=== PATIENT | female | born 1955 | race Asian ===

== ENCOUNTER 2016-11-05 00:26 | Emergency (ER) | payer OTHER ==
[2016-11-05 00:48] VITALS: BMI 20.9
[2016-11-05] MEDS ORDERED: IBUPROFEN 600 MG TABLET (FP) PO STA (01:04)
--- NOTE | 2016-11-05 01:04 | PDOC ---
History of Present Illness - General History Source: Patient Exam Limitations: No Limitations - History of Present Illness Initial Comments: 11/05/16 01:08 Patient is a 61 year old female with a significant past medical history of hyperlipidemia who presents to the ED with complaint left shoulder pain since Friday. Patient reports pain in her left arm and describes it as numbness discomfort radiating to her left hand. She states that the pain is 5/10 and she has no left arm discomfort when sitting up or laying down. She also reports occasional chest pain, but denies it now. She notes that she has been taking tylenol. Aleve and motrin with no relief. She notes that she never had this discomfort in the past, but had concerns due to her significant family history of CVAs. Patient denies any strenuous activity or trauma to the arm. She denies any headache, fever, chills, nausea, vomiting, diarrhea or constipation. She denies smoking, alcohol use or illicit drug use. She denies any recent travel. <Shivani Yepez - Last Filed: 11/05/16 03:00> - General History Source: Patient <Adam Barnes - Last Filed: 11/05/16 04:01> - General Chief Complaint: Pain Stated Complaint: PAIN,LT SHOULDER Time Seen by Provider: 11/05/16 01:01 Past History <Shivani Yepez - Last Filed: 11/05/16 03:00> - Past Medical History Anemia: No Asthma: No Cancer: No Cardiac Disorders: No CVA: No COPD: No CHF: No Dementia: No Diabetes: No GI Disorders: No Disorders: No HTN: No Hypercholesterolemia: Yes (DIET CONTROLLED) Liver Disease: No Seizures: No Thyroid Disease: No - Surgical History Abdominal Surgery: No Appendectomy: No Cardiac Surgery: No Cholecystectomy: No Lung Surgery: No Neurologic Surgery: No Orthopedic Surgery: No - Psycho/Social/Smoking Cessation Hx Suicidal Ideation: No Smoking History: Never smoked Have you smoked in the past 12 months: No Information on smoking cessation initiated: No Hx Alcohol Use: No Drug/Substance Use Hx: No Substance Use Type: None Hx Substance Use Treatment: No <Adam Barnes - Last Filed: 11/05/16 04:01> - Past Medical History Allergies/Adverse Reactions: Allergies Allergy/AdvReac Type Severity Reaction Status Date / Time No Known Drug Allergies Allergy Verified 11/05/16 00:47 Home Medications: Ambulatory Orders Ibuprofen [Motrin] 600 mg PO TID #30 tablet 11/05/16 Methocarbamol [Robaxin -] 500 mg PO TID #30 tablet 11/05/16 Review of Systems - Review of Systems Able to Perform ROS?: Yes Comments:: 11/05/16 01:09 CONSTITUTIONAL: Absent: fever, chills, diaphoresis, generalized weakness, malaise, loss of appetite HEENT: Absent: rhinorrhea, nasal congestion, throat pain, throat swelling, difficulty swallowing, mouth swelling, ear pain, eye pain, visual Changes CARDIOVASCULAR: Absent: chest pain, syncope, palpitations, irregular heart rate, lightheadedness , peripheral edema RESPIRATORY: Absent: cough, shortness of breath, dyspnea with exertion, orthopnea, wheezing, stridor, hemoptysis GASTROINTESTINAL: Absent: abdominal pain, abdominal distension, nausea, vomiting, diarrhea, constipation, melena, hematochezia GENITOURINARY: Absent: dysuria, frequency, urgency, hesitancy, hematuria, flank pain, genital pain MUSCULOSKELETAL: Present: left arm pain Absent: myalgia, arthralgia, joint swelling SKIN: Absent: rash, itching, pallor HEMATOLOGIC/IMMUNOLOGIC: Absent: easy bleeding, easy bruising, lymphadenopathy, frequent infections ENDOCRINE: Absent: unexplained weight gain, unexplained weight loss, heat intolerance, cold intolerance NEUROLOGIC: Absent: headache, focal weakness or paresthesias, dizziness, unsteady gait, seizure, mental status changes, bladder or bowel incontinence PSYCHIATRIC: Absent: anxiety, depression, suicidal or homicidal ideation, hallucinations. <Shivani Yepez - Last Filed: 11/05/16 03:00> *Physical Exam - Vital Signs Last Vital Signs Temp Pulse Resp BP Pulse Ox 98.0 F 77 20 163/74 100 11/05/16 00:47 11/05/16 00:47 11/05/16 00:47 11/05/16 00:47 11/05/16 00:47 - Physical Exam Comments: 11/05/16 01:09 GENERAL: Well developed, well nourished. Awake and alert. In no acute distress. HEENT: Normocephalic, atraumatic. PERRLA, EOMI. No conjunctival pallor. Sclerae are non -icteric. Moist mucous membranes. Oropharynx is clear. NECK: Supple. Full ROM. No JVD. Carotid pulses 2+ and symmetric, without bruits. No thyromegaly. No lymphadenopathy. CARDIOVASCULAR: Regular rate and rhythm. No murmurs, rubs, or gallops. Distal pulses are 2+ and symmetric. PULMONARY: No evidence of respiratory distress. Lungs clear to auscultation bilaterally. No wheezing, rales or rhonchi. ABDOMINAL: Soft. Non-tender. Non-distended. No rebound or guarding. No organomegaly. Normoactive bowel sounds. MUSCULOSKELETAL Normal range of motion at all joints. No bony deformities or tenderness. No CVA tenderness. EXTREMITIES: No cyanosis. No clubbing. No edema. No calf tenderness. SKIN: Warm and dry. Normal capillary refill. No rashes. No jaundice. NEUROLOGICAL: +5/5 bilateral motor strength in upper and lower extremities. Alert, awake, appropriate. Cranial nerves 2-12 intact. No deficits to light touch and temperature in face, upper extremities and lower extremities. No motor deficits in the in face, upper extremities and lower extremities. Normoreflexic in the upper and lower extremities. Normal speech. PSYCHIATRIC: Cooperative. Good eye contact. Appropriate mood and affect. <Shivani Yepez - Last Filed: 11/05/16 03:00> - Vital Signs Last Vital Signs Temp Pulse Resp BP Pulse Ox 98.0 F 77 20 163/74 100 11/05/16 00:47 11/05/16 00:47 11/05/16 00:47 11/05/16 00:47 11/05/16 00:47 <Adam Barnes - Last Filed: 11/05/16 04:01> Heart Score/ECG Review #1 11/05/16 01:11 ECG was reviewed by Dr. Barnes Impression: Normal sinus rhythm Vent rate - 63 bpm <Shivani Yepez - Last Filed: 11/05/16 03:00> ED Treatment Course - LABORATORY CBC & Chemistry Diagram: 11/05/16 01:00 11/05/16 01:00 - RADIOLOGY Radiology Studies Ordered: 11/05/16 02:56 THIS IS A PRELIMINARYREPORT FROM [facility] EXAM: CT brain without contrast REASON FOR EXAM: Dizziness rule out bleed FINDINGS: Normal brain. No acute intracranial abnormality. No bleed. Osseous structures are intact THIS DOCUMENT HAS BEEN ELECTRONICALLY SIGNED Tono Scott MD 11/05/16 03:00 THIS IS A PRELIMINARY REPORT FROM [facility] EXAM: CT cervical spine without contrast REASON FOR EXAM: Rule out herniated disc. Left arm pain FINDINGS: The cervical vertebrae are normally aligned. No fracture or destructive bone lesions. Minor degenerative osseous changes are noted. No stenosis of the cervical bony canal. Although no definite disc abnormalities are identified, CT of the cervical spine is relatively insensitive for disc disease. If this is suspected then MRI should be obtained. Note made of a mildly enlarged nodular thyroid gland. THIS DOCUMENT HAS BEEN ELECTRONICALLY SIGNED Tono Scott MD <Shivani Yepez - Last Filed: 11/05/16 03:00> - LABORATORY CBC & Chemistry Diagram: 11/05/16 01:00 11/05/16 01:00 <Adam Barnes - Last Filed: 11/05/16 04:01> Medical Decision Making - Medical Decision Making 11/05/16 03:58 Dr. Barnes: The scribe's documentation has been prepared under my direction and personally reviewed by me in its entirery. I confirm that the note above accurately reflects all work, treatment, procedures, and medical decision making performed by me. All studies return to be negative including Ct scan of brain and cervical spine. Labs are normal. EKG is NSR with no changes. Pt to follow up with her pcp. Rx Motrin 600mg PO and Robaxin 500mg PO <Adam Barnes - Last Filed: 11/05/16 04:01> *DC/Admit/Observation/Transfer - Attestations Scribe Attestion: 11/05/16 01:10 Documentation prepared by ORTEGA Lora, acting as medical review specialist for Adam Barnes DO. <Shivani Yepez - Last Filed: 11/05/16 03:00> - Discharge Dispostion Admit: No <Adam Barnes - Last Filed: 11/05/16 04:01> Diagnosis at time of Disposition: Left shoulder pain Qualifiers: Chronicity: acute Qualified Code(s): M25.512 - Pain in left shoulder - Discharge Dispostion Disposition: HOME Condition at time of disposition: Stable - Prescriptions Prescriptions: Ibuprofen [Motrin] 600 mg PO TID #30 tablet Methocarbamol [Robaxin -] 500 mg PO TID #30 tablet - Referrals Referrals: Kira Wilkinson MD [Primary Care Provider] - Codey Villatoro MD [Staff Physician] - - Patient Instructions Printed Discharge Instructions: DI for Shoulder Pain Additional Instructions: take medication as directed. Follow up with your doctor if symptoms don't improve
[2016-11-05 01:05] LABS: BASOPHIL 0.7 % (0-2.0); EOSINOPHIL 12.9 % (0-4.5); MCHC 31.9 g/dl (32.0-36.0); MEAN CELL VOLUME 65.9 fl (80-96); MEAN PLT VOLUME 7.4 fl (7.5-11.1); NEUTROPHILS 53.5 % (42.8-82.8); PLATELET COUNT 198 K/MM3 (134-434); RDW 15.4 % (11.6-15.6); WHITE BLOOD COUNT 6.9 K/mm3 (4.0-10.0)
[2016-11-05] MEDS ORDERED: IBUPROFEN 600 MG TABLET (FP) PO ONE (01:12)
[2016-11-05 01:25] LABS: INR 1.07 (0.82-1.09); PROTHROMBIN TIME (PATIENT) 11.8 SEC (9.98-11.88)
[2016-11-05 01:29] LABS: ALBUMIN 4.1 g/dl (3.4-5.0); ANION GAP 10 (8-16); BILIRUBIN,TOTAL 0.4 mg/dL (0.2-1.0); CO2 29 mmol/L (21-32); CREATININE 0.8 mg/dL (0.55-1.02); GLUCOSE,RANDOM 106 mg/dL (74-106); SGOT/AST 21 U/L (15-37); SGPT/ALT 43 U/L (12-78); TOT PROT 8.2 g/dl (6.4-8.2)
[2016-11-05 01:31] LABS: ALK PHOS 103 U/L (45-117); TROPONIN I < 0.02 ng/ml (0.00-0.05)
[2016-11-05] MEDS ORDERED: METHOCARBAMOL 500 MG TABLET PO ONE (03:55)
[2016-11-05] MEDS ORDERED: METHOCARBAMOL 500 MG TABLET ONE (03:57)
[2016-11-05 04:18] VITALS: BP 117/66; PULSE 80; TEMP 98.1
--- NOTE | 2016-11-05 10:56 | EKG ---
Test Reason : Blood Pressure : / mmHG Vent. Rate : 063 BPM Atrial Rate : 063 BPM P-R Int : 146 ms QRS Dur : 096 ms QT Int : 402 ms P-R-T Axes : -01 011 065 degrees QTc Int : 411 ms NORMAL SINUS RHYTHM NORMAL ECG WHEN COMPARED WITH ECG OF 23-JUN-2013 13:21, NO SIGNIFICANT CHANGE WAS FOUND Confirmed by FROILAN SCHROEDER MD ([id number]) on 11/05/2016 10:56:01 AM Referred By: Confirmed By:FROILAN SCHROEDER MD
== END 2016-11-05 04:05 | disposition home or self-care (01) ==
LOC: JER 00:26
DX: M25.512 Pain in left shoulder (principal)
CPT/HCPCS: 36415; 70450-TC; 72125-TC; 80053; 82550; 84484; 85025; 85610; 93005; 93010; 99283-25

== ENCOUNTER 2016-12-14 15:22 | Emergency (ER) | payer OTHER ==
[2016-12-14 15:44] VITALS: TEMP 97.6; BMI 28.3
[2016-12-14] MEDS ORDERED: SODIUM CHLORIDE 1,000 ML IV STA (16:54)
[2016-12-14] MEDS ORDERED: ONDANSETRON 4 MG/2 ML VIAL IVPUSH ONE (16:54)
[2016-12-14] MEDS ORDERED: KETOROLAC TROMETHAMINE 30 MG/1 ML VIAL IVPUSH ONE (16:54)
--- NOTE | 2016-12-14 16:54 | PDOC ---
History of Present Illness - General History Source: Patient, Old Records Exam Limitations: No Limitations <Melissa Márquez - Last Filed: 12/14/16 16:52> - General History Source: Patient Exam Limitations: No Limitations - History of Present Illness Initial Comments: 12/14/16 16:59 The patient is a 61 year old female, with a significant past medical history of HLD, Bulging C5-C6 who presents to the emergency department with complaints of headache. The patient states her headache is localised to the frontal area, sharp in nature and associated withnausea and vomiting. The patient notes 3 episodes of vomiting (nonbilious nonbloody) prior to presentation. The patient denies any recent head trauma or injury. Daughter at bedside reports patient taking 500 mg Tylenol for pain however denies any relief. Patient denies any light/sound sensitivity or thunderclap headache. She denies chest pain dizziness. She denies fever, chills, abdominal pain, diarrhea or constipation. She denies dysuria, frequency, urgency or hematuria. Allergies: NKA Past surgical history: Breast cyst surgery Social history: Denies toxic habits PCP: Dr. Kira Wilkinson <Symone Davies - Last Filed: 12/14/16 16:59> <Ankita Cummings - Last Filed: 12/14/16 19:18> - General Chief Complaint: Lightheaded Stated Complaint: HEADACHE/DIZZINESS Time Seen by Provider: 12/14/16 16:35 Past History - Past Medical History Anemia: No Asthma: No Cancer: No Cardiac Disorders: No CVA: No COPD: No CHF: No Dementia: No Diabetes: No GI Disorders: No Disorders: No HTN: No Hypercholesterolemia: Yes (DIET CONTROLLED) Liver Disease: No Seizures: No Thyroid Disease: No - Surgical History Abdominal Surgery: No Appendectomy: No Cardiac Surgery: No Cholecystectomy: No Lung Surgery: No Neurologic Surgery: No Orthopedic Surgery: No - Psycho/Social/Smoking Cessation Hx Suicidal Ideation: No Smoking History: Never smoked Have you smoked in the past 12 months: No Information on smoking cessation initiated: No Hx Alcohol Use: No Drug/Substance Use Hx: No Substance Use Type: None Hx Substance Use Treatment: No <Melissa Márquez - Last Filed: 12/14/16 16:52> <Symone Davies - Last Filed: 12/14/16 16:59> <CummingsAnkita - Last Filed: 12/14/16 19:18> - Past Medical History Allergies/Adverse Reactions: Allergies Allergy/AdvReac Type Severity Reaction Status Date / Time No Known Drug Allergies Allergy Verified 12/14/16 15:45 Home Medications: Ambulatory Orders Atorvastatin Calcium [Lipitor] 10 mg PO HS 12/14/16 Meclizine HCl [Antivert -] 25 mg PO DAILY #30 tablet 12/14/16 Review of Systems - Review of Systems Able to Perform ROS?: Yes Comments:: 12/14/16 16:59 CONSTITUTIONAL: Absent: fever, chills, diaphoresis, generalized weakness, malaise, loss of appetite HEENT: Absent: rhinorrhea, nasal congestion, throat pain, throat swelling, difficulty swallowing, mouth swelling, ear pain, eye pain, visual Changes CARDIOVASCULAR: Absent: chest pain, syncope, palpitations, irregular heart rate, lightheadedness , peripheral edema RESPIRATORY: Absent: cough, shortness of breath, dyspnea with exertion, orthopnea, wheezing, stridor, hemoptysis GASTROINTESTINAL: Absent: abdominal pain, abdominal distension, nausea, vomiting, diarrhea, constipation, melena, hematochezia GENITOURINARY: Absent: dysuria, frequency, urgency, hesitancy, hematuria, flank pain, genital pain MUSCULOSKELETAL: Absent: myalgia, arthralgia, joint swelling SKIN: Absent: rash, itching, pallor HEMATOLOGIC/IMMUNOLOGIC: Absent: easy bleeding, easy bruising, lymphadenopathy, frequent infections ENDOCRINE: Absent: unexplained weight gain, unexplained weight loss, heat intolerance, cold intolerance NEUROLOGIC: +headache. Absent: focal weakness or paresthesias, dizziness, unsteady gait, seizure, mental status changes, bladder or bowel incontinence PSYCHIATRIC: Absent: anxiety, depression, suicidal or homicidal ideation, hallucinations. <Symone Davies - Last Filed: 12/14/16 16:59> *Physical Exam - Vital Signs Last Vital Signs Temp Pulse Resp BP Pulse Ox 97.6 F 77 18 153/74 99 12/14/16 15:41 12/14/16 15:41 12/14/16 15:41 12/14/16 15:41 12/14/16 15:41 <Melissa Márquez - Last Filed: 12/14/16 16:52> - Vital Signs Last Vital Signs Temp Pulse Resp BP Pulse Ox 97.6 F 77 18 153/74 99 12/14/16 15:41 12/14/16 15:41 12/14/16 15:41 12/14/16 15:41 12/14/16 15:41 - Physical Exam Comments: 12/14/16 17:00 GENERAL: Well developed, well nourished. Awake and alert. In no acute distress. HEENT: Normocephalic, atraumatic. PERRLA, EOMI. No conjunctival pallor. Sclera are non- icteric. Moist mucous membranes. Oropharynx is clear. NECK: Supple. Full ROM. No JVD. Carotid pulses 2+ and symmetric, without bruits. No thyromegaly. No lymphadenopathy. CARDIOVASCULAR: Regular rate and rhythm. No murmurs, rubs, or gallops. Distal pulses are 2+ and symmetric. PULMONARY: No evidence of respiratory distress. Lungs clear to auscultation bilaterally. No wheezing, rales or rhonchi. ABDOMINAL: Soft. Non-tender. Non-distended. No rebound or guarding. No organomegaly. Normoactive bowel sounds. MUSCULOSKELETAL Normal range of motion at all joints. No bony deformities or tenderness. No CVA tenderness. EXTREMITIES: No cyanosis. No clubbing. No edema. No calf tenderness. SKIN: Warm and dry. Normal capillary refill. No rashes. No jaundice. NEUROLOGICAL: Alert, awake, appropriate. Cranial nerves 2-12 intact. No deficits to light touch and temperature in face, upper extremities and lower extremities. No motor deficits in the in face, upper extremities and lower extremities. Normoreflexic in the upper and lower extremities. Normal speech. Toes are downgoing bilaterally. Gait deferred. Nonfocal neurological exam. PSYCHIATRIC: Cooperative. Good eye contact. Appropriate mood and affect. <Symone Davies - Last Filed: 12/14/16 16:59> - Vital Signs Last Vital Signs Temp Pulse Resp BP Pulse Ox 97.6 F 71 18 139/73 100 12/14/16 15:41 12/14/16 18:44 12/14/16 18:44 12/14/16 18:44 12/14/16 18:44 <Ankita Cummings - Last Filed: 12/14/16 19:18> ED Treatment Course - LABORATORY CBC & Chemistry Diagram: 12/14/16 17:10 12/14/16 17:10 - ADDITIONAL ORDERS Additional order review: Laboratory Results 12/14/16 12/14/16 17:10 17:10 Sodium 137 Potassium 4.0 Chloride 100 Carbon Dioxide 28 Anion Gap 9 BUN 18 Creatinine 0.6 D Random Glucose 116 H Calcium 9.4 Phosphorus 3.1 Magnesium 2.4 Urine Color Dkyellow Urine Appearance Cloudy Urine pH 7.0 Ur Specific [place] 1.015 Urine Protein Negative Urine Glucose (UA) Negative Urine Ketones Negative Urine Blood Negative Urine Nitrite Negative Urine Bilirubin Negative Urine Urobilinogen Negative Ur Leukocyte Esterase Negative 12/14/16 17:10 RBC 6.55 H MCV 66.3 L MCHC 32.0 RDW 15.2 MPV 8.4 D Neutrophils % 87.6 H D Lymphocytes % 7.7 L D Monocytes % 2.3 L Eosinophils % 2.1 D Basophils % 0.3 - Medications Given in the ED: ED Medications Discontinued Medications Generic Name Dose Route Start Last Admin Trade Name Freq PRN Reason Stop Dose Admin Sodium Chloride 1,000 mls @ 1,000 mls/hr 12/14/16 16:54 12/14/16 17:20 Normal Saline - IV 12/14/16 17:53 1,000 mls/hr ASDIR STA Administration Ketorolac Tromethamine 30 mg 12/14/16 16:54 12/14/16 18:22 Toradol Injection - IVPUSH 12/14/16 16:55 30 mg ONCE ONE Administration Meclizine HCl 25 mg 12/14/16 18:16 12/14/16 18:22 Antivert - PO 12/14/16 18:17 25 mg ONCE ONE Administration Ondansetron HCl 4 mg 12/14/16 16:54 12/14/16 17:20 Zofran Injection IVPUSH 12/14/16 16:55 4 mg ONCE ONE Administration <Ankita Cummings - Last Filed: 12/14/16 19:18> Medical Decision Making - Medical Decision Making 12/14/16 16:53 61-year-old female with history of hyperlipidemia presents the emergency department with a frontal headache associated with nausea and vomiting today. Differential diagnosis includes but is not limited to: Intracranial process/mass , tension headache, migraine headache, dehydration, toxic/metabolic derangement. Plan: 1. CT head 2. Labs 3. IV fluids for hydration 4. Antiemetics 5. Pain management 6. Observe and reevaluate <Melissa Márquez - Last Filed: 12/14/16 16:52> - Medical Decision Making 12/14/16 19:15 Patient Name: Sarahi Bee THIS IS A PRELIMINARY REPORT FROM [facility] EXAM: CT head without contrast IMAGES: 75 DATE OF SERVICE: 2016-12-14 17:46: 42.0 HISTORY:Headache COMPARISON: Head CT dated November 05, 2016 FINDINGS: 1. There is no evidence of an acute intracranial process, intracranial hemorrhage or mass effect. 2. The ventricles are normal size. 3. The visualized portions of the orbits paranasal and mastoid sinuses are unremarkable. No significant change since previous study dated November 05, 2016. THIS DOCUMENT HAS BEEN ELECTRONICALLY SIGNED <Ankita Cummings - Last Filed: 12/14/16 19:18> *DC/Admit/Observation/Transfer - Attestations Physician Attestion: 12/14/16 16:53 I, Dr. Melissa Márquez, attest that the scribes documentation that appears above has been prepared under my direction and personally reviewed by me in its entirety. I confirmed that the note above accurately reflects all work, treatment, procedures, and medical decision-making performed by me. <Melissa Márquez - Last Filed: 12/14/16 16:52> - Attestations Scribe Attestion: 12/14/16 17:00 Documentation prepared by Symone Davies, acting as medical office assistant for Melissa Márquez MD <Symone Davies - Last Filed: 12/14/16 16:59> - Discharge Dispostion Admit: No <Ankita Cummings - Last Filed: 12/14/16 19:18> Diagnosis at time of Disposition: Headache, Dizziness - Discharge Dispostion Disposition: HOME Condition at time of disposition: Stable - Referrals Referrals: Kira Wilkinson MD [Primary Care Provider] - - Patient Instructions Printed Discharge Instructions: CT Scan of the Head, Vertigo
[2016-12-14] MEDS ORDERED: KETOROLAC TROMETHAMINE 30 MG/1 ML VIAL ONE (17:01)
[2016-12-14] MEDS ORDERED: ONDANSETRON 4 MG/2 ML VIAL ONE (17:01)
[2016-12-14 17:22] LABS: BASOPHIL 0.3 % (0-2.0); EOSINOPHIL 2.1 % (0-4.5); MCH 21.2 pg (25.7-33.7); MEAN CELL VOLUME 66.3 fl (80-96); MEAN PLT VOLUME 8.4 fl (7.5-11.1); NEUTROPHILS 87.6 % (42.8-82.8); PLATELET COUNT 205 K/MM3 (134-434); RDW 15.2 % (11.6-15.6); WHITE BLOOD COUNT 10.1 K/mm3 (4.0-10.0)
[2016-12-14 17:26] LABS: URINE APPEARANCE CLOUDY; URINE BILIRUBIN NEGATIVE (NEGATIVE); URINE BLOOD NEGATIVE (NEGATIVE); URINE COLOR DKYELLOW; URINE GLUCOSE (UA) NEGATIVE (NEGATIVE); URINE KETONE NEGATIVE (NEGATIVE); URINE LEUK ESTERASE NEGATIVE (NEGATIVE); URINE NITRITE NEGATIVE (NEGATIVE); URINE PROTEIN NEGATIVE (NEGATIVE); URINE UROBILINOGEN NEGATIVE E.U./dl (0.2-1.0)
[2016-12-14 17:44] LABS: ANISOCYTOSIS 2+; HYPOCHROMIA 2+; MICROCYTOSIS 1+; OVALOCYTES 1+; PLATELET ESTIMATE ADEQUATE (NORMAL); POIKILOCYTOSIS 1+
[2016-12-14 17:47] LABS: CALCIUM 9.4 mg/dL (8.5-10.1); CREATININE 0.6 mg/dL (0.55-1.02); MAGNESIUM 2.4 mg/dL (1.8-2.4); PHOSPHOROUS 3.1 mg/dL (2.5-4.9)
[2016-12-14] MEDS ORDERED: MECLIZINE HCL 25 MG TABLET (FP) PO ONE (18:16)
[2016-12-14] MEDS ORDERED: MECLIZINE HCL 25 MG TABLET (FP) ONE (18:19)
[2016-12-14 19:55] VITALS: BP 136/81; PULSE 81
== END 2016-12-14 19:55 | disposition home or self-care (01) ==
LOC: JER 15:22
PROC: 3E0333Z Introduction of Anti-inflammatory into Peripheral Vein, Percutaneous Approach (ICD-10-PCS; principal; 2016-12-14)
PROC: 3E033GC Introduction of Other Therapeutic Substance into Peripheral Vein, Percutaneous Approach (ICD-10-PCS; 2016-12-14)
PROC: 3E0337Z Introduction of Electrolytic and Water Balance Substance into Peripheral Vein, Percutaneous Approach (ICD-10-PCS; 2016-12-14)
DX: R51 Headache (principal); R42 Dizziness and giddiness
CPT/HCPCS: 36415; 70450-TC; 80048; 81003; 83735; 84100; 85025; 99283-25

== ENCOUNTER → 2020-09-11 | Day surgery (SDC) | payer OTHER | END | disposition home or self-care (01) | LOC: JRADIR 09:17 | PROVIDERS: ATTEND Internal Medicine | PROC: 0G9K3ZX Drainage of Thyroid Gland, Percutaneous Approach, Diagnostic (ICD-10-PCS; principal; 2020-09-11) | DX: E04.1 Nontoxic single thyroid nodule (principal) | CPT/HCPCS: 76942; 88173; 88305-TC ==

== ENCOUNTER → 2020-09-27 | Day surgery (SDC) | payer OTHER | END | disposition home or self-care (01) | LOC: JRADIR 09:46 | PROVIDERS: ATTEND Internal Medicine | PROC: 0G9H3ZX Drainage of Right Thyroid Gland Lobe, Percutaneous Approach, Diagnostic (ICD-10-PCS; principal; 2020-09-27) | DX: E04.1 Nontoxic single thyroid nodule (principal) | CPT/HCPCS: 76942; 88173; 88305-TC ==

== ENCOUNTER → 2022-04-25 | Day surgery (SDC) | payer OTHER | END | disposition home or self-care (01) | LOC: JRADIR 09:26 | PROVIDERS: ATTEND Internal Medicine | PROC: 0G9K3ZX Drainage of Thyroid Gland, Percutaneous Approach, Diagnostic (ICD-10-PCS; principal; 2022-04-25) | DX: E04.1 Nontoxic single thyroid nodule (principal) | CPT/HCPCS: 10005; 76942; 88173; 88305-TC ==